=== PATIENT | female | born 1960 | race Caucasian/White ===

== ENCOUNTER 2019-02-09 20:07 | Emergency (ER) | payer MEDICAID, OTHER ==
--- NOTE | 2019-02-09 20:15 | ER Document Report ---
ED General - General Chief Complaint: Chest Pain Stated Complaint: CHEST PAIN Time Seen by Provider: 02/09/19 20:14 Primary Care Provider: MISBAH AARON MD [EMERITUS] - Follow up in 3-5 days (call for appointment ) PANKAJ VALDES FNP-C [Primary Care Provider] - Follow up as needed Notes: Patient is a 58-year-old female that presents to the emergency department for chief complaint of chest pain. The patient reports that the pain started early this morning around 530. The currently rate the pain as 4 out of 10, and described as aching sensation that starts in between her shoulder blades and goes up towards her chest, describes the pain as sharp. They have had associated pain with deep breathing, on the right side of her chest as well. Denies any shortness of breath, nausea, vomiting, diaphoresis. Their risk factors for heart disease include obesity, hypertension, former smoker. She reports having pain like this in the past, related to her fibromyalgia will be between her shoulder blades, but it typically does not last this long. The pain has been coming and going over the course of today to the point she decided come to the ED by EMS. EMS did administer 324 mg of aspirin, and gave her 3 sublin gual nitroglycerin, which the patient states helped her pains to some degree, she does report having history of peptic ulcer disease, is not currently on a PPI because she states she had side effects. Past Medical History: Fibromyalgia, hypertension, peptic ulcer disease Past Surgical History: Cholecystectomy, tubal ligation Social History: Former smoker, denies alcohol or illicit drug use. Family History: Reviewed and noncontributory for presenting illness Allergies: Reviewed, see documented allergy list. REVIEW OF SYSTEMS: Other than noted above, the 12 point review of systems was reviewed with the patient and were negative, all pertinent findings are included in the HPI. PHYSICAL EXAMINATION: Vital signs reviewed, nursing noted reviewed. GENERAL: Obese female, no acute distress HEAD: Atraumatic, normocephalic. EYES: Eyes appear normal, extraocular movements intact, sclera anicteric, conjunctiva are normal. ENT: nares patent, oropharynx clear without exudates. Moist mucous membranes. NECK: Normal range of motion, supple without lymphadenopathy LUNGS: Breath sounds clear to auscultation bilaterally and equal. No wheezes rales or rhonchi. HEART: Regular rate and rhythm without murmurs ABDOMEN: Soft, nontender, normoactive bowel sounds. No rebound, guarding, or ri gidity. No masses appreciated. EXTREMITIES: Nontender, good range of motion, no pitting or edema. Pulses equal bilaterally in the upper and lower extremities. NEUROLOGICAL: No focal neurological deficits. Moves all extremities spontaneously Motor and sensory grossly intact on exam. PSYCH: Normal mood, normal affect. SKIN: Warm, Dry, normal turgor, no rashes or lesions noted on exposed skin TRAVEL OUTSIDE OF THE [place] IN LAST 30 DAYS: No - Related Data Allergies/Adverse Reactions: phenytoin sodium [From Dilantin] Allergy (Intermediate, Verified 10/16/14 10:14) phenytoin sodium extended [From Dilantin] Allergy (Intermediate, Verified 10/16/14 10:14) phenobarbital [Phenobarbital] Allergy (Unknown, Verified 10/16/14 10:14) Past Medical History - Social History Smoking Status: Former Smoker Family History: Reviewed & Not Pertinent - Past Medical History Cardiac Medical History: Reports: Hx Hypertension, Hx Heart Murmur - when Pulmonary Medical History: Reports: Hx Bronchitis Neurological Medical History: Reports: Hx Migraine, Hx Seizures - last 20 years GI Medical History: Reports: Hx Ulcer Musculoskeletal Medical History: Reports Hx Arthritis, Reports Hx Fibromyalgia Psychiatric Medical History: Reports: Hx Depression Past Surgical History: Reports: Hx Cholecystectomy - 1992, Hx Tubal Ligation - 1992. Denies: Hx Pacemaker - Immunizations Hx Diphtheria, Pertussis, Tetanus Vaccination: Yes Physical Exam - Vital signs Vitals: Pulse Ox 99 02/09/19 20:10 Course - Re-evaluation Re-evalutation: Presentation of chest pain in an otherwise well appearing patient. Low clinical suspicion for ACS given clinical history, exam, EKG without ST elevations or depressions, and negative initial troponin. HEART score less than or equal to 3. PE also seems unlikely given clinical history, absence of tachycardia or dyspnea. Patient d-dimer was negative. CXR without evidence of pneumothorax or pneumonia. No widened mediastinum. Aortic dissection also seems unlikely given history, symmetric pulses, CXR, and vitals. HEART Score: History 0 ECG 0 Age 1 Risk Factors 2 Troponin 0 Total: 3 Chest pain in a patient without evidence of cardiac or other serious etiology on workup today. I discussed with patient that, based on their age, risk factors and emergency department testing today, the likelihood that their symptoms are related to a heart attack is very low (estimated risk of heart attack or over the next 30 days of less than 1%). The patient demonstrates decision making capacity and has verbalized an understanding of these risks to me. Based on this, the patient has chosen to follow-up as an outpatient. Usual chest pain return precautions reviewed. The patient states understanding and agreement with this plan. We will have the patient follow-up with cardiology, given referral, advised to take Zantac twice daily, given that she has history of peptic ulcer disease is not currently taking any medications. Patient was agreeable to this plan of care and discharged home. Laboratory 02/09/19 02/09/19 02/09/19 20:20 20:20 20:20 WBC 8.7 RBC 4.89 Hgb 12.8 Hct 37.7 MCV 77 L MCH 26.1 L MCHC 33.9 RDW 15.5 H Plt Count 252 Seg Neutrophils % 71.9 Lymphocytes % 17.2 Monocytes % 6.7 Eosinophils % 3.4 Basophils % 0.8 Absolute Neutrophils 6.3 Absolute Lymphocytes 1.5 Absolute Monocytes 0.6 Absolute Eosinophils 0.3 Absolute Basophils 0.1 PT 13.2 INR 0.95 D-Dimer < 0.27 Sodium 136.0 L Potassium 3.6 Chloride 101 Carbon Dioxide 23 Anion Gap 12 BUN 19 Creatinine 0.76 Est GFR ( Amer) > 60 Est GFR (Non-Af Amer) > 60 Glucose 143 H Calcium 9.7 Total Bilirubin 0.4 Direct Bilirubin 0.3 Neonat Total Bilirubin Not Reportable Neonat Direct Bilirubin Not Reportable Neonat Indirect Bili Not Reportable AST 16 ALT 17 Alkaline Phosphatase 114 Troponin I Total Protein 7.0 Albumin 4.3 02/09/19 02/09/19 02/09/19 20:20 20:20 23:15 WBC RBC Hgb Hct MCV MCH MCHC RDW Plt Count Seg Neutrophils % Lymphocytes % Monocytes % Eosinophils % Basophils % Absolute Neutrophils Absolute Lymphocytes Absolute Monocytes Absolute Eosinophils Absolute Basophils PT INR D-Dimer Cancelled Sodium Potassium Chloride Carbon Dioxide Anion Gap BUN Creatinine Est GFR ( Amer) Est GFR (Non-Af Amer) Glucose Calcium Total Bilirubin Direct Bilirubin Neonat Total Bilirubin Neonat Direct Bilirubin Neonat Indirect Bili AST ALT Alkaline Phosphatase Troponin I < 0.012 < 0.012 Total Protein Albumin Chest X-Ray 03/17/19 20:10 IMPRESSION: No acute findings. No focal lung consolidation. - Vital Signs Vital signs: Temp Pulse Resp BP Pulse Ox 98.5 F 88 15 132/77 H 99 02/09/19 20:34 02/09/19 20:34 02/09/19 20:34 02/09/19 20:34 02/09/19 20:34 - Laboratory Result Diagrams: 02/09/19 20:20 02/09/19 20:20 Laboratory results interpreted by me: 02/09/19 02/09/19 20:20 20:20 MCV 77 L MCH 26.1 L RDW 15.5 H Sodium 136.0 L Glucose 143 H Discharge - Discharge Clinical Impression: Chest pain Qualifiers: Chest pain type: unspecified Qualified Code(s): R07.9 - Chest pain, unspecified Condition: Stable Disposition: HOME, SELF-CARE Instructions: Chest Pain of Unclear Cause ([facility]) Additional Instructions: Please follow-up with cardiology to set up a stress test in the next 30 days. If your symptoms worsen or do not improve, do not hesitate to return to the emergency department. Prescriptions: Ranitidine HCl [Zantac 150 mg Tablet] 150 mg PO BID #60 tablet Referrals: PANKAJ VALDES FNP-C [Primary Care Provider] - Follow up as needed MISBAH AARON MD [EMERITUS] - Follow up in 3-5 days (call for appointment )
[2019-02-09] MEDS ORDERED: FAMOTIDINE INJ/PF 20 MG/2 ML SDV IV ONE (20:27)
[2019-02-09] MEDS ORDERED: ONDANSETRON HCL INJ/PF 4 MG/2 ML SDV IV ONE (20:29)
[2019-02-09] MEDS ORDERED: MORPHINE SULFATE 10 MG/ML INJ IV ONE (20:29)
[2019-02-09 20:37] LABS: ABSOLUTE BASOPHILS # (AUTO) 0.1 10^3/uL (0.0-0.2); ABSOLUTE EOSINOPHILS # (AUTO) 0.3 10^3/uL (0.0-0.6); ABSOLUTE LYMPHOCYTES (AUTO) 1.5 10^3/uL (0.5-4.7); ABSOLUTE MONOCYTES (AUTO) 0.6 10^3/uL (0.1-1.4); ABSOLUTE NEUT (AUTO) 6.3 10^3/uL (1.7-8.2); BASOPHILS % (AUTO) 0.8 % (0-2); EOSINOPHILS % (AUTO) 3.4 % (0-6); HEMATOCRIT 37.7 % (36.0-47.0); HEMOGLOBIN 12.8 g/dL (12.0-15.5); LYMPHOCYTES % (AUTO) 17.2 % (13-45); MEAN CORPUSCULAR HEMOGLOBIN 26.1 pg (27.0-33.4); MEAN CORPUSCULAR HGB CONC 33.9 g/dL (32.0-36.0); MEAN CORPUSCULAR VOLUME 77 fl (80-97); MONOCYTES % (AUTO) 6.7 % (3-13); PLATELET COUNT 252 10^3/uL (150-450); RED BLOOD COUNT 4.89 10^6/uL (3.72-5.28); RED CELL DISTRIBUTION WIDTH 15.5 % (11.5-14.0); SEGMENTED NEUTROPHILS % (AUTO) 71.9 % (42-78); TOTAL CELLS COUNTED % (AUTO) 100 %; WHITE BLOOD COUNT 8.7 10^3/uL (4.0-10.5)
[2019-02-09 20:43] LABS: INTERNATIONAL RATION (INR) 0.95; PROTHROMBIN TIME 13.2 SEC (11.4-15.4)
[2019-02-09 20:50] LABS: ALANINE AMINOTRANSFERASE 17 U/L (9-52); ALBUMIN 4.3 g/dL (3.5-5.0); ALKALINE PHOSPHATASE 114 U/L (38-126); ANION GAP 12 (5-19); ASPARTATE AMINO TRANSFERASE 16 U/L (14-36); BILIRUBIN,DIRECT 0.3 mg/dL (0.0-0.4); BILIRUBIN,TOTAL 0.4 mg/dL (0.2-1.3); BLOOD UREA NITROGEN 19 mg/dL (7-20); CALCIUM 9.7 mg/dL (8.4-10.2); CARBON DIOXIDE 23 mmol/L (22-30); CHLORIDE 101 mmol/L (98-107); GLUCOSE 143 mg/dL (75-110); POTASSIUM 3.6 mmol/L (3.6-5.0)
[2019-02-09 20:58] LABS: D-DIMER < 0.27 ug/mL (0.00-0.50)
--- NOTE | 2019-02-09 21:15 | EKG REPORT ---
SEVERITY:- NORMAL ECG - SINUS RHYTHM : Confirmed by: Cong Pozo MD 09-Feb-2019 21:14:42
--- NOTE | 2019-02-09 21:20 | RADIOLOGY REPORT (SQ) ---
EXAM DESCRIPTION: XR CHEST 1 VIEW COMPLETED DATE/TME: 02/09/2019 20:10 CLINICAL HISTORY: 58 years, Female, cp COMPARISON: January 26, 2019 FINDINGS: No focal lung consolidation. No pleural effusion. No pneumothorax. Cardiac and mediastinal silhouette is unremarkable. No acute osseous abnormality. Soft tissues are unremarkable. IMPRESSION: No acute findings. No focal lung consolidation.
[2019-02-10 00:51] VITALS: BP 121/79
== END 2019-02-10 00:57 | disposition home or self-care (01) ==
LOC: ER 20:07
DX: R07.9 Chest pain, unspecified (principal); I10 Essential (primary) hypertension; Z90.49 Acquired absence of other specified parts of digestive tract; Z98.51 Tubal ligation status
CPT/HCPCS: 93005; 99285; 96374; 96375; 36415; 85025; 85610; 80053; 84484; 85379; 71045; 93010; J2270; J2405; S0028